=== PATIENT | female | born 1975 | race Caucasian/White ===

== ENCOUNTER 2017-06-01 05:58 | Inpatient (IN) | payer OTHER, MEDICAID ==
[~2017-06-01 05:58] MED LIST: CEFAZOLIN 2 GM/50 ML (PMX) 50 ML IVPB; FENTAnyl 50 MCG/ML VIAL; SOD CHLORIDE 0.9% 1,000 ML IV
[2017-06-01] MEDS ORDERED: morphine SULFATE/PF (10 MG/10 ML) INJ (07:32)
[2017-06-01] MEDS ORDERED: ROCURONIUM 50 MG INJ (07:32)
[2017-06-01] MEDS ORDERED: PROPOFOL 20 ML (07:32)
[2017-06-01] MEDS ORDERED: LIDOCAINE 2% (SDV) 5 ML INJ (07:32)
[2017-06-01] MEDS ORDERED: SUCCINYLCHOLINE CHLORIDE 100 MG/5 ML SYG IV (07:32)
[2017-06-01] MEDS ORDERED: MIDAZOLAM 1 MG/ML 2 ML INJ (07:33)
[2017-06-01] MEDS ORDERED: BUPIVACAINE 0.75%/DEXT (SPINAL) 2 ML INJ (07:37)
[2017-06-01] MEDS ORDERED: BISACODYL (EC) 5 MG TAB PO (08:00)
[2017-06-01] MEDS ORDERED: HYDROmorphONE 1 MG/ML SYG IV (08:00)
[2017-06-01] MEDS ORDERED: DIPHENHYDRAMINE 50 MG CAP PO (08:00)
[2017-06-01] MEDS ORDERED: ZOLPIDEM 5 MG TAB PO (08:00)
[2017-06-01] MEDS ORDERED: HYDROCODONE/APAP (5/325) TAB PO (08:00)
[2017-06-01] MEDS ORDERED: PHENYLephrine (100 MCG/ML) 5ML SYG (08:17)
[2017-06-01] MEDS ORDERED: CEFAZOLIN 1 GM INJ (08:38)
[2017-06-01] MEDS ORDERED: EPHEDrine SULFATE 50 MG/5 ML SYG (08:41)
[2017-06-01] MEDS ORDERED: ONDANSETRON 4 MG INJ ×2 (08:41→10:34)
[2017-06-01] MEDS ORDERED: FAMOTIDINE 20 MG INJ (08:41)
[2017-06-01] MEDS ORDERED: DEXAMETHASONE 4 MG/ML 1 ML INJ (08:41)
[2017-06-01] MEDS ORDERED: GELATIN SIZE 100 SPONGE (09:27)
[2017-06-01] MEDS: THROMBIN 5000 UNIT VIAL (09:33)
[2017-06-01] MEDS ORDERED: SUGAMMADEX SODIUM 200 MG/2 ML VIAL IV (09:49)
[2017-06-01] MEDS ORDERED: HYDROmorphONE (0.2 MG/ML) 10ML SYG IV ×3 (10:28→10:30)
[2017-06-01] MEDS ORDERED: MEPERIDINE 25 MG INJ IV (10:30)
[2017-06-01] MEDS ORDERED: NALBUPHINE HCL (10 MG/1 ML) INJ IV (10:30)
[2017-06-01] MEDS ORDERED: NALOXONE (0.4 MG/ML) INJ IV (10:30)
[2017-06-01] MEDS ORDERED: HYDROmorphONE 0.5 MG/0.5 ML SYG IV ×3 (10:30→12:30)
[2017-06-01] MEDS ORDERED: PROCHLORPERAZINE 10 MG INJ IV (10:30)
[2017-06-01] MEDS: KETOROLAC 30 MG INJ IV (10:38)
[2017-06-01] MEDS: HYDROmorphONE (0.2 MG/ML) 10ML SYG IV ×2 (10:38→10:56)
[2017-06-01] MEDS: ONDANSETRON 4 MG INJ IV ×2 (10:38→20:04)
[2017-06-01] MEDS: DIPHENHYDRAMINE 50 MG INJ IV ×2 (11:48→14:47)
[2017-06-01] MEDS: METOCLOPRAMIDE 10 MG TAB PO ×2 (12:36→18:13)
[2017-06-01] MEDS: LACTATED RINGER'S 1,000 ML IV ×2 (12:37→16:51)
[2017-06-01] MEDS: CEFAZOLIN 1 GM/50 ML (PMX) 50 ML IVPB ×2 (14:39→20:57)
[2017-06-01] MEDS: HYDROmorphONE 0.5 MG/0.5 ML SYG IV (20:05)
[2017-06-01] MEDS: TAMOXIFEN 10 MG TAB PO ×2 (20:08→20:15)
[2017-06-02] MEDS: METOCLOPRAMIDE 10 MG TAB PO ×5 (00:13→23:19)
[2017-06-02] MEDS: LACTATED RINGER'S 1,000 ML IV ×4 (00:14→23:16)
[2017-06-02] MEDS: CEFAZOLIN 1 GM/50 ML (PMX) 50 ML IVPB ×3 (05:59→21:01)
[2017-06-02] MEDS: KETOROLAC 30 MG INJ IV ×4 (06:00→23:00)
[2017-06-02 06:01] LABS: ADD MAN DIFF? NO
[2017-06-02 06:09] LABS: BASOPHILS % 0.3 % (0.0-2.0); EOSINOPHILS # 0.1 10^3/ul (0.0-0.5); HEMATOCRIT 27.7 % (37.0-47.0); HEMOGLOBIN 9.7 g/dl (12.0-16.0); LYMPHOCYTES # 2.1 10^3/ul (0.8-2.9); LYMPHOCYTES % 14.5 % (15.0-51.0); MEAN CORPUSCULAR HEMOGLOBIN 32.2 pg (29.0-33.0); MEAN PLATELET VOLUME 10.3 fl (7.4-10.4); MONOCYTE # 0.8 10^3/ul (0.3-0.9); MONOCYTES % 5.9 % (0.0-11.0); PLATELET COUNT 171 10^3/UL (140-415); RED BLOOD COUNT 3.01 10^6/ul (4.20-5.40); RED CELL DISTRIBUTION WIDTH 12.4 % (11.5-14.5)
[2017-06-02 06:09] LABS: WHITE BLOOD COUNT 14.1 10^3/ul (4.8-10.8)
[2017-06-02 06:28] LABS: ANION GAP 13 (8-16); BLOOD UREA NITROGEN 5 mg/dl (7-20); CARBON DIOXIDE 26 mmol/L (21-31); CHLORIDE 109 mmol/L (97-110); CREATININE 0.64 mg/dl (0.44-1.00); POTASSIUM 4.3 mmol/L (3.5-5.1); SODIUM 144 mmol/L (135-144)
[2017-06-02 15:21] LABS: CANCER ANTIGEN 125 12.8 U/ml (0.0-35.0)
[2017-06-02] MEDS: TAMOXIFEN 10 MG TAB PO (17:53)
[2017-06-02] MEDS ORDERED: TAMOXIFEN 10 MG TAB PO (18:00)
[2017-06-02] MEDS: HYDROCODONE/APAP (5/325) TAB PO (21:00)
[2017-06-03] MEDS: KETOROLAC 30 MG INJ IV ×4 (04:17→22:08)
[2017-06-03 06:07] LABS: ADD MAN DIFF? NO
[2017-06-03 06:16] LABS: WHITE BLOOD COUNT 8.8 10^3/ul (4.8-10.8)
[2017-06-03 06:16] LABS: BASOPHILS % 0.5 % (0.0-2.0); EOSINOPHILS # 0.2 10^3/ul (0.0-0.5); EOSINOPHILS % 2.6 % (0.0-7.0); HEMATOCRIT 27.4 % (37.0-47.0); HEMOGLOBIN 9.5 g/dl (12.0-16.0); LYMPHOCYTES # 1.8 10^3/ul (0.8-2.9); LYMPHOCYTES % 20.5 % (15.0-51.0); MEAN CORPUSCULAR HEMOGLOBIN 32.3 pg (29.0-33.0); MEAN CORPUSCULAR HGB CONC 34.7 g/dl (32.0-37.0); MEAN CORPUSCULAR VOLUME 93.2 fl (82.0-101.0); MEAN PLATELET VOLUME 10.4 fl (7.4-10.4); MONOCYTE # 0.7 10^3/ul (0.3-0.9); MONOCYTES % 7.8 % (0.0-11.0); NEUTROPHILS % 68.4 % (39.0-77.0); PLATELET COUNT 157 10^3/UL (140-415); RED BLOOD COUNT 2.94 10^6/ul (4.20-5.40); RED CELL DISTRIBUTION WIDTH 12.3 % (11.5-14.5)
[2017-06-03] MEDS: CEFAZOLIN 1 GM/50 ML (PMX) 50 ML IVPB (06:34)
[2017-06-03] MEDS: METOCLOPRAMIDE 10 MG TAB PO ×4 (06:34→22:08)
[2017-06-03] MEDS: LACTATED RINGER'S 1,000 ML IV (08:03)
[2017-06-03 11:12] LABS: ALBUMIN 4.1 g/dl (3.3-4.9)
[2017-06-03 11:16] LABS: ALANINE AMINOTRANSFERASE 39 IU/L (13-69); ALBUMIN 4.2 g/dl (3.3-4.9); ALKALINE PHOSPHATASE 44 IU/L (42-121); ASPARTATE AMINO TRANSFERASE 32 IU/L (15-46); BILIRUBIN,INDIRECT 0.2 mg/dl (0-1.1); BILIRUBIN,TOTAL 0.2 mg/dl (0.2-1.3); TOTAL PROTEIN 7.1 g/dl (6.1-8.1)
[2017-06-03 11:17] LABS: ANION GAP 19 (8-16); BLOOD UREA NITROGEN 4 mg/dl (7-20); CARBON DIOXIDE 26 mmol/L (21-31); CHLORIDE 106 mmol/L (97-110); GLUCOSE 106 mg/dl (70-220); LIPASE 49 U/L (23-300); POTASSIUM 3.9 mmol/L (3.5-5.1); SODIUM 147 mmol/L (135-144)
[2017-06-03 11:17] LABS: AMYLASE 86 U/L (11-123)
[2017-06-03 11:33] LABS: INR 1.17; PROTIME 15.1 Sec (11.9-14.9); PT RATIO 1.2
[2017-06-03] MEDS: BISACODYL (EC) 5 MG TAB PO (12:12)
[2017-06-03] MEDS: TAMOXIFEN 10 MG TAB PO (17:22)
[2017-06-04] MEDS: METOCLOPRAMIDE 10 MG TAB PO ×2 (05:16→11:50)
[2017-06-04] MEDS: KETOROLAC 30 MG INJ IV ×3 (05:17→11:50)
[2017-06-04 06:57] LABS: ALPHA FETOPROTEIN 1.56 IU/L (0.00-7.21)
[2017-06-04 07:11] LABS: CARCINOEMBRYONIC ANTIGEN 0.8 ng/ml (0.0-5.0)
[2017-06-04 07:15] LABS: CANCER ANTIGEN 19-9 39.8 U/ml (0.0-37.0)
== END 2017-06-04 15:45 | disposition home or self-care (01) | DRG 742 ==
LOC: REC 05:58 → MS1 11:52
PROVIDERS: Obstetrics & Gynecology
PROC: 0UB20ZZ Excision of Bilateral Ovaries, Open Approach (ICD-10-PCS; principal; 2017-06-01 07:30)
PROC: 0UT90ZZ Resection of Uterus, Open Approach (ICD-10-PCS; 2017-06-01 07:30)
PROC: 0UT70ZZ Resection of Bilateral Fallopian Tubes, Open Approach (ICD-10-PCS; 2017-06-01 07:30)
DX: D25.9 Leiomyoma of uterus, unspecified (principal); R18.8 Other ascites; N81.3 Complete uterovaginal prolapse; N83.201 Unspecified ovarian cyst, right side; N83.202 Unspecified ovarian cyst, left side; Z79.810 Long term (current) use of selective estrogen receptor modulators (SERMs); Z85.3 Personal history of malignant neoplasm of breast; N39.46 Mixed incontinence; R10.2 Pelvic and perineal pain; N93.9 Abnormal uterine and vaginal bleeding, unspecified; D64.9 Anemia, unspecified
CPT/HCPCS: 76705; 80048; 80051; 80076; 82040; 82105; 82150; 82378; 82565; 83690; 84520; 85025; 85610; 86301; 86304; 86850; 86900; 86901; 87086; 88305

== ENCOUNTER 2018-10-20 07:05 | Day surgery (SDC) | payer OTHER ==
[~2018-10-20 07:05] MED LIST changes: -FENTAnyl 50 MCG/ML VIAL; -SOD CHLORIDE 0.9% 1,000 ML IV
[2018-10-20] MEDS: SOD CHLORIDE 0.9% 100 ML IVPB (07:33)
[2018-10-20] MEDS: ACETAMINOPHEN 500 MG TAB PO (07:34)
[2018-10-20 07:46] LABS: ADD MAN DIFF? NO
[2018-10-20 07:58] LABS: BASOPHIL # 0.1 10^3/ul (0.0-0.1); BASOPHILS % 0.8 % (0.0-2.0); EOSINOPHILS # 0.2 10^3/ul (0.0-0.5); EOSINOPHILS % 2.7 % (0.0-7.0); HEMATOCRIT 39.1 % (37.0-47.0); LYMPHOCYTES # 2.4 10^3/ul (0.8-2.9); LYMPHOCYTES % 31.1 % (15.0-51.0); MEAN CORPUSCULAR HEMOGLOBIN 30.8 pg (29.0-33.0); MEAN CORPUSCULAR HGB CONC 33.2 g/dl (32.0-37.0); MEAN CORPUSCULAR VOLUME 92.7 fl (82.0-101.0); MEAN PLATELET VOLUME 9.7 fl (7.4-10.4); MONOCYTE # 0.5 10^3/ul (0.3-0.9); MONOCYTES % 6.6 % (0.0-11.0); NEUTROPHIL # 4.6 10^3/ul (1.6-7.5); NEUTROPHILS % 58.5 % (39.0-77.0); PLATELET COUNT 258 10^3/UL (140-415); RED BLOOD COUNT 4.22 10^6/ul (4.20-5.40); RED CELL DISTRIBUTION WIDTH 12.2 % (11.5-14.5)
[2018-10-20 07:58] LABS: WHITE BLOOD COUNT 7.8 10^3/ul (4.8-10.8)
[2018-10-20 08:11] LABS: ALANINE AMINOTRANSFERASE 22 IU/L (13-69); ALBUMIN 4.4 g/dl (3.3-4.9); ALBUMIN/GLOBULIN RATIO 1.37; ALKALINE PHOSPHATASE 57 IU/L (42-121); ANION GAP 7 (5-13); ASPARTATE AMINO TRANSFERASE 23 IU/L (15-46); BILIRUBIN,INDIRECT 0.5 mg/dl (0-1.1); BILIRUBIN,TOTAL 0.5 mg/dl (0.2-1.3); BLOOD UREA NITROGEN 14 mg/dl (7-20); CALCIUM 9.3 mg/dl (8.4-10.2); CARBON DIOXIDE 28 mmol/L (21-31); CHLORIDE 105 mmol/L (97-110); CREATININE 0.71 mg/dl (0.44-1.00); Estimated GFR > 60 mL/min (>60); GLUCOSE 97 mg/dl (70-220); POTASSIUM 4.1 mmol/L (3.5-5.1); SODIUM 140 mmol/L (135-144); TOTAL PROTEIN 7.6 g/dl (6.1-8.1)
[2018-10-20 08:22] LABS: INR 0.99; PARTIAL THROMBOPLASTIN TIME 26.3 Sec (23.0-35.0); PROTIME 13.2 Sec (11.9-14.9)
[2018-10-20] MEDS ORDERED: CEFAZOLIN 2 GM/50 ML (PMX) 50 ML IVPB (08:30)
[2018-10-20] MEDS ORDERED: LIDOCAINE 2% (SDV) 5 ML INJ (09:52)
[2018-10-20] MEDS ORDERED: MIDAZOLAM 1 MG/ML 2 ML INJ (09:53)
[2018-10-20] MEDS: LIDOCAINE 1%/EPI 30 ML INJ (10:10)
[2018-10-20] MEDS: BUPIVACAINE 0.5% (SDV) 30 ML INJ (10:10)
[2018-10-20] MEDS ORDERED: CEFAZOLIN 1 GM INJ (10:16)
[2018-10-20] MEDS ORDERED: PROPOFOL 20 ML (10:16)
[2018-10-20] MEDS ORDERED: OXYCODONE/ACETAMINOPHEN (5/325) TAB PO ×2 (10:30)
[2018-10-20] MEDS ORDERED: ALBUTEROL 0.083% (NEB) 2.5 MG/3 ML AMP HHN (10:30)
[2018-10-20] MEDS ORDERED: hydrALAzine 20 MG INJ IV (10:30)
[2018-10-20] MEDS ORDERED: ONDANSETRON 4 MG INJ IV (10:30)
[2018-10-20] MEDS ORDERED: morphine 2 MG INJ IV ×2 (10:30)
[2018-10-20] MEDS ORDERED: EPHEDrine 25 MG/5 ML SYG IV (10:30)
[2018-10-20] MEDS ORDERED: HYDROmorphONE 1 MG/5 ML IV SYRINGE IV ×3 (10:30)
[2018-10-20] MEDS ORDERED: LABETALOL HCL 20MG INJ IV (10:30)
== END 2018-10-20 11:35 | disposition home or self-care (01) ==
LOC: SDS 07:05
DX: D17.23 Benign lipomatous neoplasm of skin and subcutaneous tissue of right leg (principal); Z85.3 Personal history of malignant neoplasm of breast
CPT/HCPCS: 27337; 80053; 85025; 85610; 85730; 88307